=== PATIENT | female | born 1990 | race Caucasian/White ===

== ENCOUNTER 2018-11-20 06:15 | Inpatient (IN) ==
[2018-11-20] MEDS ORDERED: NS 1,000 ML IV ONE (06:31)
[2018-11-20] MEDS ORDERED: NARCAN IV ONE (06:31)
[2018-11-20 06:41] LABS: BASO# 0.01 X1000 (0.0-0.2); BASO% 0.2 % (0.0-0.8); EOS# 0.07 X1000 (0.0-0.7); EOS% 1.6 % (0.0-10.0); HEMATOCRIT 35.7 % (37.0-47.0); HEMOGLOBIN 11.6 g/dL (12.0-16.0); LYMPH# 1.42 X1000 (1.2-3.4); LYMPH% 32.9 % (20.5-51.1); MCH 26.8 PG (27-31); MCHC 32.5 g/dL (33-37); MCV 82.4 FL (81-99); MONO# 0.23 X1000 (0.11-0.59); MONO% 5.3 % (1.7-9.3); MPV 10.7 FL (7.4-10.4); NEUT# 2.58 X1000 (1.4-6.5); PLT 162 X1000 (130-400); RBC 4.33 XMIL (4.2-5.4); RDW 16.6 % (11.5-14.5); WBC 4.31 X1000 (4.8-10.8)
[2018-11-20 06:52] LABS: UR AMPHETAMINES QUAL NONE DETECTED (NONE DETECT); UR BARBITUATES QUAL NONE DETECTED (NONE DETECT); UR BENZODIAZEPIN QUAL PRESUMPTIVE POSITIVE (NONE DETECT); UR CANNABINOIDS QUAL PRESUMPTIVE POSITIVE (NONE DETECT); UR COCAINE QUAL NONE DETECTED (NONE DETECT); UR METHADONE QUAL PRESUMPTIVE POSITIVE (NONE DETECT); UR METHAMPHETAMINE QUAL NONE DETECTED (NONE DETECT); UR OPIATES QUAL PRESUMPTIVE POSITIVE (NONE DETECT); UR OXYCODONE QUAL PRESUMPTIVE POSITIVE (NONE DETECT); UR PCP QUAL NONE DETECTED (NONE DETECT); UR PROPOXYPHENE QUAL NONE DETECTED (NONE DETECT); UR TCA QUAL PRESUMPTIVE POSITIVE (NONE DETECT)
--- NOTE | 2018-11-20 06:52 | PROVIDER DOCUMENTATION ---
HPI-General Adult - General Chief Complaint: Overdose Stated Complaint: OD ON MEDS Time Seen by Provider: 11/20/18 06:29 Source: family Unable to obtain history due to:: altered Allergies/Adverse Reactions: Patient Allergies Allergy/AdvReac Type Severity Reaction Status Date / Time No Known Allergies Allergy Verified 11/18/18 19:33 Home Medications: Home Medication List Medication Instructions Recorded Confirmed Last Taken Type Acyclovir 200 mg PO DAILY 08/15/12 08/15/12 Unknown History Cephalexin [Keflex] 500 mg PO BID #20 capsule 09/10/12 Unknown Rx Sulfamethoxazole/Trimethoprim 1 each PO BID #20 tablet 09/10/12 Unknown Rx [Bactrim Ds Tablet] Nitrofurantoin Monohyd/M-Cryst 100 mg PO BID #14 cap 11/18/18 Unknown Rx [Macrobid 100 mg Capsule] - History of Present Illness -Gen Adult Nature of Presenting Problems: Pt was dropped off by her father in law for a drug overdose, pt was here a couple of days ago for the same, pt is altered here and not providing any further history, pt is lying in bed in no acute distress. Location of Pain/Injury: reports: none Pain Radiation: reports: no radiation Quality of Pain: reports: none Onset/Duration: reports: unsure Context/Activities at Onset: reports: none Modifying Factors: improves with: nothing Associated Symptoms: reports: denies symptoms Similar Symptoms Previously?: Yes Recently seen or treated by another doctor?: Yes Review of Systems - Adult - REVIEW OF SYSTEMS - ADULT ROS:: unobtainable per condition (altered, drug overdose) Past History - Adult - PAST MEDICAL HISTORY-ADULT Review of Records: reports: Nursing Assessment Review Physical Exam-General - PHYSICAL EXAM-ADULT Initial Vital Signs Reviewed: Yes - CONSTITUTIONAL General Appearance: appears well - EYES Eyes: PERRL/EOMI - HEAD, EARS, NOSE, MOUTH & THROAT HENMT: normocephalic/atraumatic - NECK Neck: non-tender - RESPIRATORY Respiratory: chest non-tender - CARDIOVASCULAR Cardiovascular: normal peripheral pulses - GASTROINTESTINAL (ABDOMEN) Abdominal Exam: normal bowel sounds - LYMPHATIC Lymphatic: no adenopathy - MUSCULOSKELETAL Back Exam: normal inspection Extremity: normal range of motion - SKIN Integumentary: normal color - 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 - PSYCHIATRIC Psych/Mental Status: normal mood/affect Progress - PLAN OF CARE/RESULTS Progress/Plan/Lab Results: Vital Signs - 8 hr 11/20/18 06:31 Pulse Rate 89 Respiratory Rate 14 Blood Pressure 97/58 O2 Sat by Pulse Oximetry 100 Laboratory Results - last 24 hr 11/20/18 06:30 WBC 4.31 L RBC 4.33 Hgb 11.6 L Hct 35.7 L MCV 82.4 MCH 26.8 L MCHC 32.5 L RDW Std Deviation 16.6 H Plt Count 162 MPV 10.7 H Immature Gran % (Auto) 0.0 Neut % (Auto) 60.0 Lymph % (Auto) 32.9 [place] % (Auto) 5.3 Eos % (Auto) 1.6 Baso % (Auto) 0.2 Immature Gran # (Auto) 0.00 Neut # (Auto) 2.58 Lymph # (Auto) 1.42 [place] # (Auto) 0.23 Eos # (Auto) 0.07 Baso # (Auto) 0.01 Orders Category Date Time Status ED: Urine Bedside ORDERED Care 11/20/18 06:30 Active Nursing- Obtain EKG once Care 11/20/18 06:32 Active ACETONE SERUM [CHEM] Stat Lab 11/20/18 06:30 Received ALCOHOL BLOOD Stat Lab 11/20/18 06:30 Received CBC WITH ELECTRONIC DIFF [HEME] Stat Lab 11/20/18 06:30 Completed COMPREHENSIVE METABOLIC PANEL [CHEM] Stat Lab 11/20/18 06:30 Received SALICYLATES [TDM] Stat Lab 11/20/18 06:30 Received TROPONIN T Stat Lab 11/20/18 06:30 Received URINE DRUG SCREEN PL Stat Lab 11/20/18 06:32 Received 0.9% Sodium Chloride Inj [Ns] 1,000 ml Med 11/20/18 06:31 Active IV 999 mls/hr Naloxone [Narcan] Med 11/20/18 06:31 Discontinued 2 mg IV NOW ONE EKG [EKG] Stat Ther 11/20/18 06:32 Ordered Result Diagrams: 11/20/18 06:30 11/20/18 06:30 Departure - Departure
[2018-11-20 07:02] LABS: AGAP 13; ALBUMIN 3.6 g/dL (3.5-5.0); ALKALINE PHOSPHATASE 58 U/L (32-104); BUN 11 mg/dL (8-22); CALCIUM 9.1 mg/dL (8.8-10.2); CHLORIDE 104 mmol/L (98-107); COSMO 283; CREATININE 0.9 mg/dL (0.5-0.9); ESTIMATED GFR > 60; GLUCOSE 110 mg/dL (70-104); GOT 45 U/L (10-30); GPT 38 U/L (10-36); POTASSIUM 3.4 mmol/L (3.5-5.1); SODIUM 142 mmol/L (136-145); TCO2 25 mmol/L (25-35); TOTAL PROTEIN 6.9 g/dL (6.3-8.3)
--- NOTE | 2018-11-20 07:14 | EKG Report ---
Test Performed on : 11/20/2018 06:38:24 AM Test Reason : ams Blood Pressure : / mmHG Vent. Rate : 087 BPM Atrial Rate : 087 BPM P-R Int : 140 ms QRS Dur : 104 ms QT Int : 408 ms P-R-T Axes : 062 059 020 degrees QTc Int : 490 ms Normal sinus rhythm. Incomplete right bundle branch block Prolonged QT Abnormal ECG No previous ECGs available Unconfirmed Result
[2018-11-20 07:20] LABS: BILIRUBIN URINE NEGATIVE (NEGATIVE); BLOOD URINE NEGATIVE (NEGATIVE); CLARITY CLEAR (CLEAR); COLOR YELLOW; GLUCOSE URINE NEGATIVE (NEGATIVE); KETONE URINE TRACE mg/dL (NEGATIVE); LEUKOCYTES URINE TRACE (NEGATIVE); NITRITE URINE NEGATIVE (NEGATIVE); PROTEIN URINE TRACE mg/dL (NEGATIVE); UROBILINOGEN URINE NORMAL
[2018-11-20 07:31] LABS: URINE EPITHELIAL CELLS <10 /HPF (<10); URINE SOURCE CATH; URINE WBC <10 /HPF (<10)
[2018-11-20] MEDS ORDERED: ZOFRAN IV ONE (07:35)
[2018-11-20 07:51] LABS: BE 0.2 mmoll (-3.0-3.0); BLOOD TYPE ARTERIAL; METHB 1.2 % (0.0-1.5); O2(CT) 15.1 mL/dL (15.0-23.0); O2HB 91.8 % (95.0-99.0); PCO2(98.6) 32 mmHg (35-45); PO2(98.6) 58 mmHg (60-100); SAMPLE BLOOD; SAO2 94.5 % (95.0-100.0); THB 11.7 g/dL (11.5-17.4); pH(98.6) 7.47 (7.35-7.45)
--- NOTE | 2018-11-20 08:17 | Diag Imaging Result Doc PS360 ---
EXAM: CHEST-PORTABLE INDICATION: cough TECHNIQUE: 2 views COMPARISON: None available. FINDINGS: The lungs are grossly clear. There is no discrete pleural fluid collection or pneumothorax. The cardiomediastinal silhouette and central vasculature are grossly unremarkable. IMPRESSION: No evidence of acute pathology by plain radiograph. Electronically signed by Saravanan Alvarado 11/20/2018 8:15 AM
[2018-11-20 09:32] LABS: ALLEN TEST NO; MODALITY ROOM AIR
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
[2018-11-20] MEDS ORDERED: ZOFRAN IV PRN (16:35)
[2018-11-20] MEDS: NS 1,000 ML IV SCH (17:41)
[2018-11-20] MEDS ORDERED: KLOR-CON PO ONE (17:57)
[2018-11-20] MEDS ORDERED: ATIVAN IV PRN (17:57)
[2018-11-20] MEDS: LEVAQUIN PO SCH (18:11)
[2018-11-21] MEDS ORDERED: NS 1,000 ML IV ONE (00:28)
[2018-11-21] MEDS: NS 1,000 ML IV SCH ×2 (00:43→09:03)
[2018-11-21 06:35] LABS: BASO# 0.01 X1000 (0.0-0.2); BASO% 0.3 % (0.0-0.8); EOS# 0.05 X1000 (0.0-0.7); EOS% 1.5 % (0.0-10.0); HEMATOCRIT 29.8 % (37.0-47.0); HEMOGLOBIN 9.3 g/dL (12.0-16.0); LYMPH# 1.51 X1000 (1.2-3.4); LYMPH% 45.1 % (20.5-51.1); MCH 26.3 PG (27-31); MCHC 31.2 g/dL (33-37); MCV 84.4 FL (81-99); MONO# 0.19 X1000 (0.11-0.59); MONO% 5.7 % (1.7-9.3); MPV 11.1 FL (7.4-10.4); NEUT# 1.59 X1000 (1.4-6.5); NEUT% 47.4 % (42.2-75.2); PLT 147 X1000 (130-400); RBC 3.53 XMIL (4.2-5.4); WBC 3.35 X1000 (4.8-10.8)
[2018-11-21 06:43] LABS: AGAP 8; BUN 10 mg/dL (8-22); CALCIUM 7.9 mg/dL (8.8-10.2); CHLORIDE 112 mmol/L (98-107); COSMO 283; CREATININE 0.7 mg/dL (0.5-0.9); ESTIMATED GFR > 60; GLUCOSE 79 mg/dL (70-104); POTASSIUM 3.6 mmol/L (3.5-5.1); SODIUM 143 mmol/L (136-145); TCO2 23 mmol/L (25-35)
[2018-11-21] MEDS: LEVAQUIN PO SCH (09:03)
[2018-11-21] MEDS ORDERED: NS 1,000 ML IV SCH (10:00)
[2018-11-21] MEDS ORDERED: METHADONE PO ONE (11:00)
--- NOTE | 2018-11-21 11:23 | DISCHARGE SUMMARY ---
ADMISSION DATE: 11/20/2018 DISCHARGE DATE: 11/21/2018 DISCHARGE DIAGNOSES: 1. Altered mental status secondary to multidrug overdose. 2. Hypotension. 3. An 11 week intrauterine . HOSPITAL COURSE: Natalia is a 28-year-old, female who presented to the [facility] Emergency Room with having a drug overdose. She was dropped off at the emergency room by her [id number] and reported that patient had been using different drugs. She also goes to the methadone clinic in [place], who prescribes her methadone 48 mg in the morning and 32 mg in the evening. The patient also reported that she has been having 11 weeks . She was admitted to the hospital and was given IV fluids since her urine drug screen was presumptively positive for opiates, oxycodone, methadone, tricyclics, benzodiazepines, and cannabinoids. She gradually improved and her initial hypotension also resolved. She is very alert and oriented x3 this morning, and has been doing well because of which she is going to be discharged home. She was found to have slightly low hemoglobin and hematocrit of 9.3 and 29.8, which is suspected to be chronic and secondary to hemodilution. Since patient's condition has improved, she is going to be discharged home today. DISCHARGE MEDICATIONS: Methadone 48 mg in the morning and 32 mg in the evening daily as per methadone clinic. FOLLOWUP: She will follow up with Dr. Rossi in approximately 1 week. CONDITION: Stable. DISPOSITION: Home. She is staying with her mom in [place]. cc: MD Saravanan Jimenez MD
[2018-11-21 13:12] VITALS: BP 95/57
[2018-11-21] MEDS ORDERED: METHADONE LIQUID PO SCH (21:00)
[2018-11-22] MEDS ORDERED: METHADONE LIQUID PO SCH (09:00)
== END 2018-11-21 13:25 | disposition home or self-care (01) | DRG 833 ==
LOC: P.ED 06:15 → P.EDIPHOLD 11:49
PROVIDERS: ATTEND Internal Medicine
CPT/HCPCS: 51702; 71010; 71045; 80048; 80053; 80104; 80196; 80301; 80305; 80307; 80320; 80329; 81001; 81025; 82009; 82055; 82805; 83605; 84484; 84702; 85025; 93005; 96374; 96375; 99285; A9270; G0431; G0434; G0477; G0480; G6038; G6040; J2310; J2405; J7030; S0109